=== PATIENT | female | born 1975 | race African-American/Black ===

== ENCOUNTER 2016-05-16 11:50 | Emergency (ER) | payer OTHER | END 2016-05-16 12:58 | disposition home or self-care (01) | LOC: FER 11:50 | DX: M77.9 Enthesopathy, unspecified (principal); F17.210 Nicotine dependence, cigarettes, uncomplicated | CPT/HCPCS: 73080; J1030 ==

== ENCOUNTER → 2021-06-17 | Day surgery (SDC) | payer OTHER ==
[~2021-06-17] VITALS: Ht 170.2 cm; Wt 104.3 kg
[~2021-06-17] MED LIST: IBUPROFEN800 MG PO; MEDROL 4MG DOSEP4 MG PO; NORCO 5-325 TA1 EACH PO; NORVASC5 MG PO; ROBAXIN750 MG PO; TOPAMAX50 MG PO; VITAMIN D2000 UNIT PO
[2021-06-17 08:37] LABS: HCG (URINE) SCREEN NEGATIVE (NEGATIVE)
[2021-06-17 09:05] LABS: HCT 43.2 % (37.0-47.0); HGB 13.8 g/dl (12.5-16.0); MCH 26.6 pg (25.0-31.0); MCHC 31.9 g/dL (32.0-36.0); MCV 83.4 fL (78.0-100.0); MPV 8.5 fL (6.0-9.5); RBC 5.18 M/uL (4.20-5.40); RDW 14.5 % (11.5-14.0); WBC 3.5 K/uL (4.0-10.5)
[2021-06-17 09:22] LABS: ALBUMIN 4.1 g/dL (3.4-5.0); BILIRUBIN - TOTAL 0.4 mg/dL (0.2-1.0); BUN/CREAT RATIO (CALC) 15.8 RATIO; CREATININE 0.76 mg/dL (0.51-0.95); GLOBULIN (CALCULATION) 3.6 g/dL; POTASSIUM 3.7 mmol/L (3.5-5.1); TOTAL PROTEIN 7.7 g/dL (6.4-8.2)
== END | disposition home or self-care (01) ==
LOC: FAS 08:15
PROVIDERS: Surgery
DX: Z12.11 Encounter for screening for malignant neoplasm of colon (principal); I10 Essential (primary) hypertension; Z80.0 Family history of malignant neoplasm of digestive organs; Z79.899 Other long term (current) drug therapy
CPT/HCPCS: 36415; 80053; 84703; J1610; J2250; J2704; J7120